=== PATIENT | female | born 1985 | race Caucasian/White ===

== ENCOUNTER 2018-05-07 09:12 | Day surgery (SDC) | payer OTHER ==
[2018-05-07 09:42] VITALS: BMI 48.2
[2018-05-07] MEDS ORDERED: Lactated Ringer's 500 ML IV ONE ×2 (14:30)
[2018-05-07] MEDS ORDERED: Lidocaine Hydrochloride 5 ML INJ ONE (14:32)
[2018-05-07] MEDS ORDERED: Propofol 10 mg/ml Inj (20 ML) ONE (14:32)
[2018-05-07 16:09] VITALS: BP 121/61; PULSE 92; RESP 18; TEMP 97.9; O2SAT 99
== END 2018-05-07 15:50 | disposition home or self-care (01) ==
LOC: C.ENDO 09:12
PROVIDERS: ATTEND Internal Medicine Gastroenterology
DX: Z71.89 Other specified counseling (principal); K29.70 Gastritis, unspecified, without bleeding
CPT/HCPCS: 43239; 82948; 84703; 88305; J2704; J7120